=== PATIENT | female | born 1955 | race Two or more races ===

== ENCOUNTER 2024-09-27 13:13 | Emergency (ER) | payer OTHER ==
[~2024-09-27] VITALS: Ht 162.6 cm; Wt 109.1 kg
[~2024-09-27 13:13] MED LIST: AMLO10TA55 PO; CETI10TA58 PO; CITA-144 PO; FURO20TA5 PO; HYDR10TA31 PO; HYDR25TA2 PO; MONT-40 PO; NAPR-1193 PO; OS500 PO
[2024-09-27 13:18] VITALS: TEMP 98.4
[2024-09-27] MEDS ORDERED: ALBU18HF12 PO (13:18)
[2024-09-27] MEDS ORDERED: DOCU-412 PO (13:18)
[2024-09-27] MEDS ORDERED: CITA-108 PO (13:18)
[2024-09-27] MEDS ORDERED: OMEP20CA12 PO (13:18)
[2024-09-27] MEDS ORDERED: FLUT16H NASAL (13:18)
[2024-09-27] MEDS: ACETAMINOPHEN 500 MG TABLET PO ONE (14:02)
[2024-09-27] MEDS: LIDOCAINE 5% TRANSDERMAL PATCH TD ONE (16:11)
[2024-09-27 17:57] VITALS: BP 155/85; PULSE 76; RESP 18; O2SAT 97
[2024-09-27] MEDS ORDERED: CYCL-448 PO (18:16)
[2024-09-27] MEDS ORDERED: ACET-3385 PO (18:16)
== END 2024-09-27 19:32 | disposition home or self-care (01) ==
LOC: EMS 13:13
DX: S29.011A Strain of muscle and tendon of front wall of thorax, initial encounter (principal); F32.A Depression, unspecified; I10 Essential (primary) hypertension; J45.909 Unspecified asthma, uncomplicated; Z88.6 Allergy status to analgesic agent; Z79.899 Other long term (current) drug therapy; X58.XXXA Exposure to other specified factors, initial encounter; Y93.89 Activity, other specified; Y92.89 Other specified places as the place of occurrence of the external cause; Y99.8 Other external cause status
CPT/HCPCS: 99283; 71101; G0238